=== PATIENT | female | born 1945 | race Hispanic/Latino ===

== ENCOUNTER 2016-06-11 08:52 | Day surgery (SDC) | payer OTHER, MEDICARE ==
[~2016-06-11] VITALS: Ht 162.6 cm; Wt 75.6 kg
[2016-06-11] VITALS (8 sets, daily range): BP systolic 101–128; BP diastolic 41–74; PULSE 68–75; RESP 14–17; O2SAT 94–99
--- NOTE | 2016-06-11 06:41 | PCM.HPANE ---
Patient Data Surgeon Admitting Provider: Attending Provider:Tess Matthews MD Primary Care Physician:Carisa Cleaning Other Provider:Randy Ocampo Anesthesia Reason for Visit Left Breast Atypical Hyperplasia Ht/WT & BMI Height (Feet): 5 Height (Inches): 3.25 Body Mass Index 0.00 Allergies Coded Allergies: Penicillins (Verified Allergy, Unknown, 02/28/09) Past Anesthesia History Anesthesia History: Denies:: Anesthesia Reactions Diabetes History Hx Diabetes?: No Medications Reported Medications Ibuprofen 200 Mg [id number] Mg PO Q6H PRN For Pain Ref 0 06/06/16 Metformin (Glucophage)1,000 Mg Tablet1,000 Mg PO DAILY Ref 0 06/06/16 History History of ENT Problems?: No Hx of Heart Problems?: No Hx of Respiratory Problem?: No Respiratory History: Denies:: Oxygen Administration Use of C-PAP Machine Hx Neurologic Problems?: No Hx of GI Problems?: No Hx of Problems?: No Female Hx: Positive for:: Problems with Breasts? (left breast current admission problem) Hx Musculoskeletal Problems?: No Hx of Psycho/Social Problems?: No Hx Surgeries?: Yes (vag hyst,) Hx Any Other Health Problems?: Yes Other History: Denies:: Cancer Thyroid Disease Hx Diabetes: No Hx Alcohol Use: NoHx Substance Use: NoHave You Smoked inLast 12 mo: No Stop/Bang S-Snoring: Do You Snore Loudly: No T-Tired: feel tired, fatigued: Yes O-Obsered: Observed not breath: No P-Blood Pressure: treated: No B- Body Mass Index > 35 kg/m2: No A- Age over 50: Yes N- Neck Large Circumference: No G- Gender Male: No ANGELA Total Score: 2 ANGELA Risk Assessment: Low Risk, <3 Yes Risk Assessment Category Category 1A: Patient has history of documented sleep apnea, and HAS NOT received any narcotic, sedative or anesthesia administration during this stay. Category 1B: Patient has history of documented sleep apnea, and HAS received any narcotic , sedative or anesthesia administration during this stay Category 2: Patient has SUSPECTED Obstructive Sleep Apnea, and HAS received any narcotic , sedative or anesthesia administration during this stay. Category 3: Patient has SUSPECTED Obstructive Sleep Apnea and HAS NOT received narcotic, sedative or anesthesia administration during this stay. Category 4: Outpatient in Procedural Areas with known sleep apnea or who screen positive for High Risk via the STOP/BANG questionnaire. Exam Exam General Appearance: Alert, Oriented X3, Cooperative, No Acute Distress HEENT/AIRWAY: MP 2 Lungs: Clear to Auscultation, Normal Air Movement Heart: Exam Unremarkable, Regular Rate/Rhythm, No Murmurs/Rubs/Gallops Plan Impression Patient chart reviewed, patient interviewed and anesthestic plan with risks, benefits, and alternatives discussed, and informed consent obtained. ASA Physical Status: ASA2 Mod Systemic Disease Anesthetic Plan: GA Bene/Risks/Altern/Consents: Yes HP Complete Prior to Induction: Yes Kalpesh Almodovar MD Jun 11, 2016 06:41
[~2016-06-11 08:52] MED LIST: Clindamycin 900 mg/50 mL D5W IV ONE; IBUP200C PO; Lactated Ringer's 1,000 ML IV SCH; METF1000 PO
[2016-06-11] MEDS ORDERED: fentaNYL-PF 50 mCg/mL 2 mL Inj ONE (08:53)
[2016-06-11] MEDS ORDERED: Dexamethasone 4 mg/mL Inj ONE (08:53)
[2016-06-11] MEDS ORDERED: Ondansetron 2 mg/mL 2 mL Inj ONE (08:53)
[2016-06-11] MEDS ORDERED: Propofol 10,000 mCg/mL 20 mL Inj ONE (08:53)
[2016-06-11] MEDS ORDERED: Lactated Ringer's 1,000 ML IV ONE ×2 (09:30→13:25)
[2016-06-11] MEDS ORDERED: Bupivacaine-MPF 0.5% 30 mL Inj INFILTRATE ONE (11:12)
[2016-06-11] MEDS ORDERED: Lactated Ringer's 500 ML IV PRN (11:16)
[2016-06-11] MEDS ORDERED: Lactated Ringer's 1,000 ML IV SCH (11:16)
[2016-06-11] MEDS ORDERED: MetoCLOpramide 5 mg/mL 2 mL Inj IVPUSH PRN (11:20)
[2016-06-11] MEDS ORDERED: Labetalol 5 mg/mL 4 mL Inj IV PRN (11:20)
[2016-06-11] MEDS ORDERED: Phenylephrine 10,000 mCg/mL Inj IVPUSH PRN (11:20)
[2016-06-11] MEDS ORDERED: fentaNYL-PF 50 mCg/mL 2 mL Inj IVPUSH PRN (11:20)
[2016-06-11] MEDS ORDERED: HYDROmorphone 1 mg/mL Inj IVPUSH PRN (11:20)
[2016-06-11] MEDS ORDERED: Atropine 0.4 mg/mL Inj IVPUSH PRN (11:20)
[2016-06-11] MEDS ORDERED: hydrALAZINE 20 mg/mL Inj IVPUSH PRN (11:20)
[2016-06-11] MEDS ORDERED: Ondansetron 2 mg/mL 2 mL Inj IVPUSH PRN (11:20)
[2016-06-11] MEDS ORDERED: EPHEDrine Sulfate 50 mg/mL Inj IVPUSH PRN (11:20)
[2016-06-11] MEDS ORDERED: Dexamethasone 4 mg/mL Inj IVPUSH PRN (11:20)
--- NOTE | 2016-06-11 12:03 | PCM.SURGPO ---
Immediate Operative Note Date of Surgery: Jun 11, 2016 Pre Operative Diagnosis Atypical Ductal Hyperplasia L Breast Post Operative Diagnosis Atypical Ductal Hyperplasia L Breast Procedure Wire Localized L Breast Excisional Biopsy Surgeon and [employer] Surgeon: Tess Matthews MD Assistants: Nalini Patterson PAC Findings Clip seen on specimen radiograph Complications There were no periprocedural complications identified. Surgical Specimen Removed: Yes Specimen sent to Pathology: Yes Surgical Specimen description: 1. Excisional biopsy 2. New inferior margin Anesthetic Administered: GA Grafts, Implants: None Output, Estimated Blood Loss: 2 Blood Admin during surgery: No Attending Statement Oceanographer Geological listed was medically necessary for the completion of the case Tess Matthews MD Jun 11, 2016 12:03
--- NOTE | 2016-06-11 12:59 | PCM.ANEP1 ---
Post Anesthesia Phase 1 PACU Phase 1 Assessment Date of Service: Jun 11, 2016 Vital Signs Vital Signs Date Time Temp Pulse Resp B/P Pulse Ox O2 Delivery O2 Flow Rate FiO2 06/11/16 12:20 36.5 75 16 113/65 99 Room Air 06/11/16 12:15 70 14 105/41 96 06/11/16 12:05 71 15 101/49 96 06/11/16 12:00 73 17 103/50 95 Room Air 06/11/16 11:55 71 15 121/60 94 Room Air 06/11/16 11:50 36.7 75 14 128/68 95 Room Air 06/11/16 09:44 36.3 68 16 125/62 99 Room Air Anesthetic Administered: GA Level of Alertness: Awake, talking SCHUMACHER's with Equal Strength: Yes Pain: No Nausea or Vomiting: No Oxygen Delivery: Simple Mask Lungs: Clear to Auscultation, Normal Air Movement Kalpesh Almodovar MD Jun 11, 2016 12:59
[2016-06-11] MEDS ORDERED: OXYC5TAB72 PO (13:56)
[2016-06-11] MEDS ORDERED: POLY17PO6 PO (13:56)
--- NOTE | 2016-06-11 15:08 | OP ---
[address] [address] OPERATIVE REPORT PATIENT: ALCIDES ARAUJO : 1945 MR#: [id number] ADMIT: 06/11/2016 JOB ID: [id number] DATE OF SURGERY: 06/11/2016 PREOPERATIVE DIAGNOSIS(ES): Left breast atypical ductal hyperplasia. POSTOPERATIVE DIAGNOSIS(ES): Left breast atypical ductal hyperplasia. PROCEDURE PERFORMED: Wire localized left breast excisional biopsy. SURGEON: Tess Matthews MD INSTRUCTOR MODELING: Melinda Patterson PA-C ANESTHESIA: General, with local. COMPLICATIONS: None. POSTOPERATIVE CONDITION: Stable. INDICATIONS: The patient is a 70-year-old lady who had a screening mammogram done in March after establishing a new primary care relationship at [facility]. She has not noted any masses or pain. The free mammogram showed focal asymmetry in the left breast and ultrasound did not visualize any mass. When she had a stereotactic biopsy, it showed flat epithelial atypia with atypical ductal hyperplasia. After discussing the risks, benefits, and alternatives, she is here today for a wire-localized excisional biopsy of the left breast lesion. PROCEDURE DETAILS: [facility] had two mammographic localization of the biopsy clip. She was brought to the operating room and underwent smooth induction of general anesthesia. The left breast was prepped and draped in the usual sterile fashion. Surgical time-out was undertaken using safety checklist, and all were in agreement. I began by making a circumareolar incision superiorly. I used a skin flap toward wire insertion site and delivered the wire into the surgical site. I then followed the wire, dissecting the breast tissue circumferentially, developing a cylindrical specimen postero-inferiorly following the wire. I was able to do this with good hemostasis, and once I got underneath the specimen posteriorly, we marked the specimen with a short stitch superior and a long stitch lateral and got a specimen radiograph. After visualizing the specimen radiograph, I did take an additional inferior margin of tissue to make sure I got a good amount of tissue circumferentially around the marking clip. I marked this new inferior margin again with a stitch laterally and the new inferior margin with a short stitch. After this, after we ensured hemostasis, we closed the skin with 3-0 Vicryl followed by 4-0 Monocryl subcuticular. Steri-Strips and a sterile dressing were applied. The patient was recovered from anesthesia and was taken to the recovery room in a stable condition.
--- NOTE | 2016-06-11 15:11 | PCM.ANEP2 ---
Post Anesthesia Evaluation ASA/CMS Post Anesthesia VS in Patient's Normal Range?: Yes Resp Stable; Airway Patent?: Yes CV Function & Hydration Stable: Yes Mental Status Recovered?: Yes Pain control Satisfactory?: Yes N/V Control Satisfactory?: Yes Kalpesh Almodovar MD Jun 11, 2016 15:11
--- NOTE | 2016-06-12 07:13 | DRSVH ---
SPECIMEN LEFT BREAST: 06/11/2016 CLINICAL: Breast specimen. Correlation is made to exams dated: 06/11/2016 localization, 04/22/2016 stereotactic biopsy, 6 mammogram, and 03/25/2016 mammogram - [facility]. A specimen was imaged for the previous biopsy site located in the left breast at 12 o'clock middle d epth. IMPRESSION: SPECIMEN The imaged specimen includes a biopsy clip and the distal portion of the localization wire. This exam was interpreted at Station ID: [id number]. Lydia villarreal/alesha:06/11/2016 16:59:15 Additional referring physicians: SERINA HEBERT TRISTA L. PENTR
[2016-06-12] MEDS ORDERED: Polyethylene Glycol (PEG) 17 Gm Powder PO SCH (08:30)
--- NOTE | 2016-06-13 14:04 | PATH ---
SURGICAL PATHOLOGY Attending Physician:Tess Matthews MD CASE STATUS: Signed Out PATIENT NAME: ALCIDES ARAUJO PID: [id number] : 1945 DATE COLLECTED:06/11/2016 00:00 SPECIMEN: 1: Breast, Biopsy - Excisional 2: Breast Margin CLINICAL HISTORY: ATYPICAL DUCTAL HYPERPLASIA, LEFT BREAST 1). LEFT BREAST WIRE LOCALIZED EXCISIONAL BIOPSY 2). LEFT BREAST NEW INFERIOR MARGIN FINAL DIAGNOSIS: 1.LEFT BREAST, WIRE LOCALIZED EXCISIONAL BIOPSY: BENIGN BREAST TISSUE WITH FOCI OF USUAL-TYPE INTRADUCTAL HYPERPLASIA AND FIBROCYSTIC CHANGES. CALCIFICATIONS ASSOCIATED WITH BENIGN GLANDS. CORE BIOPSY SITE IDENTIFIED. NO ATYPICAL DUCTAL HYPERPLASIA, OR IN SITU OR INVASIVE CARCINOMA IDENTIFIED. 2.LEFT BREAST, NEW INFERIOR MARGIN: BENIGN BREAST TISSUE WITH INTRADUCTAL PAPILLOMAS AND USUAL-TYPE INTRADUCTAL HYPERPLASIA. FIBROCYSTIC CHANGES (APOCRINE METAPLASIA). NO ATYPICAL DUCTAL HYPERPLASIA OR IN SITU OR INVASIVE CARCINOMA IDENTIFIED. ICD10 CODE D24.2 GROSS DESCRIPTION: The specimens are received in formalin, labeled with the patient's name, and sublabeled as the following: (1) left breast wire localized excisional biopsy; (2) left breast-new inferior margin. (1) The specimen consists of a piece of breast tissue (8.2 cm AP, 3.5 cm SI, 1.1 cm ML) with no overlying skin. The specimen is oriented with 2 black sutures (short-superior, long-lateral). A localization wire is present. The specimen is serially sectioned SI into 8 slices with the superior and inferior resection margins slices #1 and #8 respectively. The breast tissue is fatty and focally fibrous. A cystic cavity (0.7 x 0.7 x 0.4 cm), within slices #2-#4, is 4.8 cm from the anterior, 1.2 cm from the posterior, 0.5 cm in the superior, 2.1 cm from the inferior, 0.1 cm from the medial, and 0.3 cm and the lateral resection margins. The cyst contains clear colorless gelatinous material. No nodules or masses are identified. Ink code: purple-anterior; yellow-posterior; black-superior; orange-inferior; green-medial; blue-lateral. Section code: (1A) superior resection margin, perpendicularly sectioned; (1B-1C) slice #2, bisected and submitted AP; (1D-1E) slice #3, trisected and submitted AP; (1F-1G) slice #4, trisected and submitted AP; (1H-1I) slice #5, bisected and submitted AP; (1J-1L) slice #6, trisected and submitted AP; (1M-1O) slice #7, bisected and submitted AP, posterior half is further sliced; (1P) inferior resection margin, perpendicularly sectioned. Specimen entirely submitted. (2) The specimen consists of a piece of breast tissue (2.3 cm AP, 0.5 cm SI, 2.5 cm ML) with no overlying skin. The specimen is oriented with 2 black sutures (long-lateral, short-inferior). No localization wire is present. The breast tissue is fibrofatty with no nodules, masses or lesions identified. Ink code: purple-anterior; yellow-posterior; black-superior; orange-inferior; green-medial; blue-lateral. Section code: (2A-2B) breast tissue, serially sectioned and submitted AP. Specimen entirely submitted. Note: Approximate excision time in formalin for both specimens-20 hours and 40 minutes calculated using a collection date of June 11, 2016 with the time and fixative of 1140. 06/12/16 JM MICRO DESCRIPTION: See diagnosis. ICD-9 CODES: CPT CODES: 1: 95005 2: 12367 Electronically Signed Out Ivonne Meyers MD [facility] [address], [place] [address] Technical component performed at [facility], [facility] [address], [place], [address]
== END 2016-06-11 23:59 | disposition home or self-care (01) ==
LOC: SAS 08:52
PROVIDERS: ATTEND Student in an Organized Health Care Education/Training Program
DX: D24.2 Benign neoplasm of left breast (principal); N60.92 Unspecified benign mammary dysplasia of left breast; E78.5 Hyperlipidemia, unspecified; E11.9 Type 2 diabetes mellitus without complications; K21.9 Gastro-esophageal reflux disease without esophagitis; Z79.84 Long term (current) use of oral hypoglycemic drugs
CPT/HCPCS: 19101; 76098; J1100; J2250; J2405; J3010; J7120